=== PATIENT | female | born 1975 | race Caucasian/White ===

== ENCOUNTER 2017-07-12 18:25 | Emergency (ER) | payer OTHER ==
[~2017-07-12] VITALS: Ht 162.6 cm; Wt 68.0 kg
[2017-07-12] MEDS ORDERED: LIORESAL 10 MG10 MG PO (18:37)
[2017-07-12] MEDS ORDERED: ZANAFLEX4 MG PO (18:37)
[2017-07-12] MEDS ORDERED: ADVAIR HFA 230M12 GM INH (18:38)
[2017-07-12] MEDS ORDERED: IBUPROFEN 600600 M1 PO (18:38)
[2017-07-12] MEDS ORDERED: TYLENOL ARTHRI650 MG PO (18:38)
[2017-07-12] MEDS ORDERED: XULTOPHY 100 UNI3 ML PO (18:39)
[2017-07-12] MEDS ORDERED: CLARITIN10 MG PO (18:39)
[2017-07-12 20:01] VITALS: BP 151/83
== END 2017-07-12 20:01 | disposition home or self-care (01) ==
LOC: M.ERS 18:25
DX: T78.40XA Allergy, unspecified, initial encounter (principal); Y92.89 Other specified places as the place of occurrence of the external cause; Z88.1 Allergy status to other antibiotic agents; Z88.5 Allergy status to narcotic agent

== ENCOUNTER → 2019-10-25 | Outpatient (CLI) | payer OTHER ==
[~2019-10-25] MED LIST: ADVAIR HFA 230M12 GM INH; CLARITIN10 MG PO; IBUPROFEN 600600 M1 PO; LIORESAL 10 MG10 MG PO; TYLENOL ARTHRI650 MG PO; XULTOPHY 100 UNI3 ML PO; ZANAFLEX4 MG PO
== END ==
LOC: M.LAB 02:38
PROVIDERS: ATTEND Family Medicine
DX: U07.1 COVID-19 (principal); Z12.11 Encounter for screening for malignant neoplasm of colon

== ENCOUNTER → 2020-03-30 | Outpatient (CLI) | payer OTHER | LOC: M.MRI 17:02 | PROVIDERS: ATTEND Student in an Organized Health Care Education/Training Program | DX: S83.411A Sprain of medial collateral ligament of right knee, initial encounter (principal); M25.461 Effusion, right knee; R60.0 Localized edema; X58.XXXA Exposure to other specified factors, initial encounter; Y93.89 Activity, other specified; Y92.89 Other specified places as the place of occurrence of the external cause; Y99.8 Other external cause status ==

== ENCOUNTER 2020-05-26 01:38 | Emergency (ER) | payer OTHER ==
[~2020-05-26] VITALS: Ht 162.6 cm; Wt 68.5 kg
[2020-05-26 02:57] VITALS: BP 142/73
== END 2020-05-26 02:57 | disposition home or self-care (01) ==
LOC: M.ERS 01:38
DX: R09.81 Nasal congestion (principal); Z20.828 Contact with and (suspected) exposure to other viral communicable diseases; J45.909 Unspecified asthma, uncomplicated; Z79.899 Other long term (current) drug therapy; Z88.1 Allergy status to other antibiotic agents; Z88.6 Allergy status to analgesic agent